=== PATIENT | female | born 1955 | race Caucasian/White ===

== ENCOUNTER 2020-08-15 10:18 | Emergency (ER) | payer MEDICARE ==
[~2020-08-15] VITALS: Ht 170.2 cm; Wt 70.5 kg
[2020-08-15] MEDS ORDERED: ondansetron/PF 4mg/2ml inj IV ONE (10:45)
[2020-08-15] MEDS ORDERED: normal saline 1000ML IV soln IV ONE (10:45)
[2020-08-15] MEDS ORDERED: morphine 4 MG/ML inj SYRINge IV ONE ×2 (10:50→12:15)
[2020-08-15] MEDS ORDERED: iohexol 350MG/ML 100ml bottle IV ONE (10:50)
[2020-08-15 11:01] LABS: BASOPHILS # (AUTO) 0.1 X10'3 (0-0.2); BASOPHILS % (AUTO) 0.4 % (0-1); EOSINOPHILS # (AUTO) 0.1 X10'3 (0-0.9); HEMATOCRIT 43.7 % (35.0-45.0); HEMOGLOBIN 14.4 g/dl (12.0-16.0); LYMPHOCYTES # (AUTO) 2.1 X10'3 (1.1-4.8); LYMPHOCYTES % (AUTO) 15.7 % (21-51); MEAN CORPUSCULAR HEMOGLOBIN 28.4 PG (27.0-31.0); MEAN PLATELET VOLUME 8.2 FL (7.4-10.4); MONOCYTES # (AUTO) 0.6 X10'3 (0-0.9); MONOCYTES % (AUTO) 4.8 % (2-12); NEUTROPHILS # (AUTO) 10.4 X10'3 (1.8-7.7); NEUTROPHILS % (AUTO) 78.1 % (42-75); PLATELET COUNT 415 X10'3 (140-440); RED BLOOD COUNT 5.09 X10'6 (4.20-5.60); RED CELL DISTRIBUTION WIDTH 15.9 % (11.5-14.5); WHITE BLOOD COUNT 13.3 X10'3 (4.5-11.0)
--- NOTE | 2020-08-15 11:18 | NUR ---
TC FROM GRAND-DAUGHTER, DARIUS FOR CONDITION REPORT. DARIUS INFORMED THAT WORK-UP IS IN PROGRESS AND MORE WILL BE KNOWN WHEN RESULTS ARE OBTAINED. CONTACT NUMBER FOR DARIUS IS
[2020-08-15] MEDS ORDERED: LORazepam 2 mg/ml vial IV ONE (11:20)
[2020-08-15 11:23] LABS: ALANINE AMINOTRANSFERASE 18 U/L (12-78); ALBUMIN/GLOBULIN RATIO 1.1 (1.1-1.5); ALKALINE PHOSPHATASE 125 IU/L (46-116); ANION GAP 17 (8-16); ASPARTATE AMINO TRANSFERASE 24 U/L (10-37); BILIRUBIN,TOTAL 0.5 MG/DL (0.1-1.0); BLOOD UREA NITROGEN 16 MG/DL (7-18); BUN/CREATININE RATIO 20.8 (6.6-38.0); CALCIUM 9.1 MG/DL (8.5-10.1); CHLORIDE 103 MMOL/L (99-107); CREATININE 0.77 MG/DL (0.40-0.90); GLUCOSE 164 MG/DL (70-104); POTASSIUM 3.5 MMOL/L (3.5-5.1); SODIUM 143 MMOL/L (135-145); TOTAL CARBON DIOXIDE 22.8 MMOL/L (24-32); TOTAL PROTEIN 7.6 G/DL (6.4-8.2); eGFR 75 ML/MIN
[2020-08-15] MEDS ORDERED: mag hydrox/Alum hydrox/simeth 30ml oral suspension PO ONE (12:15)
[2020-08-15] MEDS ORDERED: famotidine/PF 10 mg/ml inj IV ONE (12:15)
[2020-08-15] MEDS ORDERED: metoclopramide 5 mg/ml inj IV ONE (12:15)
[2020-08-15] MEDS ORDERED: LIDOcaine Viscous 15ml cup MM ONE (12:15)
[2020-08-15] MEDS ORDERED: sucralfate 1gm/10ml UD suspension PO ONE (12:15)
[2020-08-15 12:43] VITALS: BP 155/82
[2020-08-15 12:43] LABS: CLARITY,URINE CLOUDY (Clear); COLOR,URINE YELLOW (Yellow); GLUCOSE, URINE NEGATIVE (Neg); KETONES,URINE >=80 mg/dl (Neg); LEUKOCYTE ESTERASE ,URINE NEGATIVE (Neg); NITRITES, URINE NEGATIVE (Neg); OCCULT BLOOD,URINE NEGATIVE (Neg); PH,URINE 8.5 (4.8-8.0); PROTEIN,URINE NEGATIVE (Neg); UROBILINOGEN,URINE 0.2 E.U/dL (0.2-1.0)
[2020-08-15 12:46] LABS: UA COLLECTION TYPE VOIDED
[2020-08-15 12:57] LABS: AMORPHOUS PHOSPHATES 3+; BACTERIA,URINE FEW /HPF (Neg); MUCUS STRANDS NONE SEEN /LPF (Neg); RBC,URINE NONE SEEN /HPF (0-2); SQUAMOUS EPITHELIAL CELL,UR FEW /LPF (FEW); WBC,URINE 0-4 /HPF (0-4)
[2020-08-15] MEDS ORDERED: PENI250T2 PO (13:26)
[2020-08-15] MEDS ORDERED: PANT-47 PO (13:26)
[2020-08-15] MEDS ORDERED: ONDA4TAB6 PO (13:26)
[2020-08-15] MEDS ORDERED: HYDR-3965 PO (13:26)
== END 2020-08-15 14:15 | disposition home or self-care (01) ==
LOC: ER 10:18
DX: R10.13 Epigastric pain (principal); M54.89 Other dorsalgia; R11.2 Nausea with vomiting, unspecified; K44.9 Diaphragmatic hernia without obstruction or gangrene; K08.89 Other specified disorders of teeth and supporting structures; F17.200 Nicotine dependence, unspecified, uncomplicated; Z79.2 Long term (current) use of antibiotics; Z79.899 Other long term (current) drug therapy
CPT/HCPCS: 36415; 71045; 71275; 74174; 80053; 81001; 83605; 83880; 84145; 84484; 85025; 87040; 93005; 96374; 96375; 96376; 99291; J2060; J2270; J2405; J2765; J3490; J7030; Q9967; 99285